=== PATIENT | female | born 1945 | race African-American/Black ===

== ENCOUNTER 2024-01-08 13:05 | Emergency (ER) | payer OTHER ==
[2024-01-08] MEDS ORDERED: ONDANSETRON 4 MG/2 ML VIAL ONE (13:41)
[2024-01-08] MEDS ORDERED: MORPHINE 4 MG/ML SYR ONE (13:41)
[2024-01-08] MEDS ORDERED: NA CHLORIDE 0.9% 500 ML ONE (13:42)
[2024-01-08 13:48] LABS: Absolute Eosinophils 0.1 K/uL (0-0.5); Absolute Lymphocytes (CBC) 2.1 K/uL (0.7-4.9); Absolute Monocytes 0.8 K/uL (0.1-1.3); Basophils % 0.6 % (0-1.3); Eosinophils % 1.4 % (0-4.4); Hematocrit 38.8 % (36.0-45.0); Hemoglobin 12.9 g/dL (12.0-15.0); Lymphocytes % 25.7 % (15.3-44.8); MCH 28.4 pg (27.0-35.0); MCHC 33.2 g/dL (32.0-36.0); MCV 85.6 fL (80-100); MPV 7.9 fL (7.6-11.3); Monocytes % 9.8 % (3.3-12.3); Neutrophils % 62.5 % (41.7-73.7); Nucleated Red Blood Cells % 0.1 % (0-0); Platelets 214 thou/uL (152-406); RBC Red Blood Cell Count 4.53 M/uL (3.86-4.86)
[2024-01-08 14:13] LABS: Albumin 3.5 g/dL (3.4-5.0); Anion Gap 7.7 mEq/L (5.0-15.0); Bilirubin Direct 0.1 mg/dL (0-0.2); Bilirubin Indirect, Calculated 0.5 mg/dL (0.2-0.8); Bilirubin Total 0.6 mg/dL (0.2-1.0); Globulin 3.5 g/dL (2.3-3.5); Potassium 3.7 mEq/L (3.5-5.1); Troponin High Sensitivity 5.3 pg/mL (<58.9)
[2024-01-08] MEDS ORDERED: CEFAZOLIN SODIUM 1 GM/VIAL ONE (14:17)
[2024-01-08] MEDS ORDERED: FENTANYL CITR 100 MCG/2 ML ONE (14:18)
[2024-01-08] MEDS ORDERED: NA CHLORIDE 0.9% 100 ML ONE (14:19)
[2024-01-08] MEDS ORDERED: TDAP (DIPHTH,PERTUSS(ACELL),TET VAC) 0.5 ML VIAL IMVAC ONE (14:19)
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
--- NOTE | 2024-01-08 15:20 | RAD REPORT ---
EXAM DESCRIPTION: RAD - Ankle Left 3 View - 01/08/2024 3:10 pm CLINICAL HISTORY: PAIN COMPARISON: No comparisons FINDINGS/IMPRESSION: Mildly displaced fracture involving the medial malleolus. There is both a fract ure at the level of the talar dome as well as an avulsion fracture off of the tip of the medial malle olus. Cannot exclude some small fractures off of the medial aspect of the talus. The ankle alignment is maintained.
--- NOTE | 2024-01-08 15:20 | RAD REPORT ---
EXAM DESCRIPTION: RAD - Tib Fib Left - 01/08/2024 3:10 pm CLINICAL HISTORY: PAIN COMPARISON: No comparisons FINDINGS/IMPRESSION: Fracture involving the medial malleolus. Reference left ankle radiograph. No ot her fracture of the tibia or fibula is identified.
--- NOTE | 2024-01-08 15:21 | RAD REPORT ---
EXAM DESCRIPTION: RAD - Hand Right 3 View - 01/08/2024 3:10 pm CLINICAL HISTORY: PAIN COMPARISON: No comparisons FINDINGS/IMPRESSION: No acute fracture. No malalignment. Degenerative changes are present the base o f the thumb and at the interphalangeal joints.
--- NOTE | 2024-01-08 15:23 | RAD REPORT ---
EXAM DESCRIPTION: RAD - Knee Right 3 View - 01/08/2024 3:10 pm CLINICAL HISTORY: PAIN COMPARISON: No comparisons FINDINGS/IMPRESSION: Status post right total knee arthroplasty. No hardware complications or acute f ractures. No malalignment. No significant knee effusion.
--- NOTE | 2024-01-08 15:25 | RAD REPORT ---
EXAM DESCRIPTION: RAD - Ankle Right 3 View - 01/08/2024 3:10 pm CLINICAL HISTORY: PAIN COMPARISON: No comparisons FINDINGS/IMPRESSION: No acute fracture. No malalignment. Dorsal aspect and plantar aspect calcaneal spurs. Mild midfoot degenerative changes.
[2024-01-08] MEDS ORDERED: LIDOCAINE 1% MPF 5 ML VIAL ONE (15:35)
[2024-01-08] MEDS ORDERED: BUPIVACAINE 0.5% PF 10 ML VIAL ONE (15:35)
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
[2024-01-08] MEDS ORDERED: HYDROMORPHONE HCL 1 MG/ML INJ ONE (15:58)
[2024-01-08 16:00] LABS: Sqamous Epithelial <5 /HPF (None Seen); Urine Bacteria None Seen /HPF (<20); Urine Bilirubin NEGATIVE (Negative); Urine Blood Negative (Negative); Urine Clarity Clear (Clear); Urine Color Colorless (Yellow); Urine Culture Reflex Order NOT NEEDED; Urine Glucose NEGATIVE (Negative); Urine Ketones NEGATIVE (Negative); Urine Micro Reflex YN NO BILL MICROSCOPIC; Urine Nitrite NEGATIVE (Negative); Urine Protein NEGATIVE (Negative); Urine RBC <5 /HPF (None Seen); Urine Urobilinogen Normal (Normal); Urine WBC <5 /HPF (<5); Urine pH 6.5 (5.0-7.0)
[2024-01-08 19:21] VITALS: BP 137/75; TEMP 97.9; O2SAT 99
--- NOTE | 2024-01-11 12:51 | EKG ---
Test Date: 2024-01-08 Test Time: 14:08:34 Web Marketing Analyst: CELIO MEASUREMENT RESULTS: Intervals: Rate: 65 OH: 138 QRSD: 74 QT: 410 QTc: 426 Dennis: P: 54 OH: 138 QRS: 47 T: 56 INTERPRETIVE STATEMENTS: Normal sinus rhythm with sinus arrhythmia Normal ECG No previous ECG available for comparison Electronically Signed On 01-11-24 12:43:23 CDT by Jeyson Wolfe
== END 2024-01-08 17:57 | disposition short-term general hospital (02) ==
LOC: ER 13:05
PROC: 2W3MX1Z Immobilization of Left Lower Extremity using Splint (ICD-10-PCS; principal; 2024-01-08)
DX: S82.52XB Displaced fracture of medial malleolus of left tibia, initial encounter for open fracture type I or II (principal); M25.561 Pain in right knee; M79.641 Pain in right hand; V09.20XA Pedestrian injured in traffic accident involving unspecified motor vehicles, initial encounter; Z23 Encounter for immunization; Z88.2 Allergy status to sulfonamides; Z88.5 Allergy status to narcotic agent
CPT/HCPCS: 96361; 85025; 81001; 80048; 36415; 80076; 84484; 70450; 72125; 71260; 74177; 71045; 73130; 73562; 73590; 73610 ×2; 90471; 96375; 96374; 99285; 29515; Q9967; J2001; J3010; J1170; J2405; J7040; J0690; 93005